=== PATIENT | female | born 1985 | race Caucasian/White ===

== ENCOUNTER → 2017-03-06 | Outpatient (CLI) | payer MEDICAID ==
[~2017-03-06] MED LIST: ALBUTEROL-200 PUFFS/ IH; BUPRENORPHINE H1 TAB SL; FLINTSTONES1 CTB PO; HYDROCORT 1% CR30 GM TP; MOTRIN400 MG PO; PERCOCET 5/3251 EACH PO; PREDNISONE 20MG20 MG PO; SINGULAIR 10 MG10 MG PO; TESSALON PERLE100 MG PO; ZITHROMAX Z PA250 MG PO
[2017-03-06 17:32] LABS: AMPHETAMINES/METAMPHETAMINES NEGATIVE ng/mL (<1000)
== END ==
LOC: LAB 14:45
PROVIDERS: Obstetrics & Gynecology
DX: O20.0 Threatened abortion (principal); Z04.8 Encounter for examination and observation for other specified reasons; Z34.80 Encounter for supervision of other normal pregnancy, unspecified trimester

== ENCOUNTER → 2017-05-11 | Outpatient (CLI) | payer MEDICAID ==
--- NOTE | 2017-05-11 15:41 | RADIOLOGY REPORT PS360 ---
US PELVIS (NO FETUS) HISTORY: RT OVARIAN CYST ORDERING PHYSICIAN: Gage Choe MD PATIENT AGE: 31 years COMPARISON: None FINDINGS: The patient is 15 weeks . Evaluation is performed of the right ovary demonstrating a 2 cm corpus luteum cyst. evaluation was not performed. Blood flow is noted to both ovaries. Left ovary has an unremarkable appearance measuring 3.3 x 2 cm. The right ovary measures 2.9 x 2.4 cm. No cul-de-sac fluid demonstrated. IMPRESSION: 2 cm right ovarian cyst probably representing a corpus luteum cyst
== END ==
LOC: RAD 12:51
DX: N83.201 Unspecified ovarian cyst, right side (principal)

== ENCOUNTER 2017-07-09 16:23 | Emergency (ER) | payer MEDICAID ==
[~2017-07-09] VITALS: Ht 162.6 cm; Wt 56.7 kg
--- OUTSIDE RECORDS SUMMARY | 2017-07-09 16:29 | External Medical Summary Rpt | CCD ---
Author Author , IZABELLA Organization IZABELLA Address Unknown Phone [email or web address] Providers Care Grit Blaster Name Role Phone Caitlin Munguia MD, Unavailable Unavailable Caitlin Munguia MD Purpose Continuity of Care Document - 03-13-2013 through 2016 Problems Code Diagnosis DOS Provider Status 305.1 305.1 03-13-2013 [place] TOBACCO USE [facility] 634.91 634.91 SPON [facility] J40 BRONCHITIS, NOT SPECIFIED ACUTE OR CHRONIC J45.909 UNSPECIFIED ASTHMA, UNCOMPLICAT ED Allergies, Adverse Reactions, Alerts Type Allergy to substance Adverse Reaction to Substance Substance Reaction Severity NO KNOWN ALLERGIES Unknown Unknown Vital Signs 03-13-2013 19:08 Name Value Interpretat Reference Comment ion Range Body 97.6 [degF] Temperature BP 76 mm[Hg] Diastolic BP Systolic 121 mm[Hg] Heart 85 /min Rate/Pulse O2% 96 % Respiratory 20 /min Rate 03-13-2013 17:40 Name Value Interpretat Reference Comment ion Range BP 66 mm[Hg] Diastolic BP Systolic 100 mm[Hg] Heart 69 /min Rate/Pulse O2% 96 % Respiratory 20 /min Rate Results Labs Lab Lab Date Result Refere Interp Status Commen Order Detail nces retati t Range on AFP Tetra (05-29-2017 19:32) Comment SEE complet s: 017 BELOW: ed 19:32 Comment: THIS PATIENT IS AT INCREASED RISK TO HAVE A BABY WITH OPEN Comment: SPINA BIFIDA (OSB). RECOMMENDATIONS: Comment: Comment: 1) TARGETED ULTRASOUND IS RECOMMENDED TO VERIFY Comment: GESTATIONAL AGE, VIABILITY, NUMBER OF FETUSES, AND TO Comment: RULE OUT ANOMALIES. Comment: Comment: 2) IF AFP IS < 2.0 MoM, REPEATING THE AFP IS AN OPTION TO Comment: RULE OUT TRANSIENT ELEVATIONS. Comment: Comment: 3) SEE SEPARATE RESULT FORM FOR ADDITIONAL COMMENTS. Interpr POSITIV complet etation 017 E FOR ed of 19:32 OSB serum or plasma second Quantit 1 : complet ative 017 2388 ed risk 19:32 assessm ent for trisomy Quantit = NOT complet ative 017 INCREAS ed risk 19:32 ED assessm ent for trisomy = 613 complet trisomy 017 ed 21 19:32 risk determi nation base Interpr SCREEN complet etation 017 POS. ed of 19:32 ABNORMA serum L or plasma second Trisomy = 4618 complet 21 017 ed risk 19:32 determi nation in fetus Determi = 238 complet nation 017 ed of risk 19:32 of open neural tub Serum = 1.12 complet or 017 ed plasma 19:32 inhibin A measure ment (a Serum = complet or 017 222.10 ed plasma 19:32 pg/mL inhibin A measure ment (m Serum = 0.64 complet or 017 ed plasma 19:32 unconju gated estriol (E3 Serum = 0.78 complet or 017 ng/mL ed plasma 19:32 unconju gated estriol (E3 Serum = 2.41 complet or 017 ed plasma 19:32 choriog onadotr opin measu HCG = 74346 complet ser/lemuel 017 mIU/mL ed s 19:32 Serum = 2.60 complet or 017 ed plasma 19:32 alpha-1 -fetopr otein valente Serum = 117.5 complet or 017 ng/mL ed plasma 19:32 alpha fetopro tein measur Results REPORT complet 017 ed 19:32 Multipl NO NO L complet e 017 ed pregnan 19:32 cy Insulin NOT complet 017 PROVIDE ed depende 19:32 D NOT nt PROVIDE diabete D L s mellitu s dete Determi = 121 complet nation 017 LBS. ed of 19:32 weight Mother' CAUCASI complet s race 017 AN ed 19:32 CAUCASI AN L Age at = 32 complet deliver 017 YEARS ed y 19:32 Gestati RAMAN complet onal 017 ed age 19:32 8 RAMAN method 8 L Determi = 17.3 complet nation 017 WEEKS ed of 19:32 gestati onal age B-HCG SerPl EIA 3rd [facility] (03-13-2013 17:59) B-HCG 14-2 7514.8 complet SerPl 013 mIU/ML ed EIA 3rd 17:59 [facility] URINALYSIS/COMPLETE (03-13-2013 17:12) URINE 08-14-2 YELLOW YELLOW complet COLOR 013 ed 17:12 URINE 08-14-2 CLEAR CLEAR complet APPEARA 013 ed NCE 17:12 URINE 08-14-2 NEGATIV NEG complet GLUCOSE 013 E ed - 17:12 DIPSTIC K URINE 08-14-2 NEGATIV NEG complet BILIRUB 013 E ed IN - 17:12 DIPSTIC K URINE 08-14-2 NEGATIV NEG complet KETONE 013 E mg/dL ed 17:12 URINE 08-14-2 Less 1.005-1 complet SPECIFI 013 than or .030 ed C 17:12 equal GRAVITY to 1.005 URINE 08-14-2 NEGATIV NEG complet BLOOD 013 E ed 17:12 URINE 08-14-2 7.0 UNK 5.0-8.5 complet PH 013 ed 17:12 URINE 08-14-2 NEGATIV NEG complet PROTEIN 013 E mg/dL ed - 17:12 DIPSTIC K URINE 08-14-2 0.2 NEG complet UROBILI 013 E.U./dL ed NOGEN - 17:12 DIPSTIC K URINE 08-14-2 NEGATIV NEG complet NITRATE 013 E ed - 17:12 DIPSTIC K URINE 08-14-2 NEGATIV NEG complet LEUK 013 E ed ESTERAS 17:12 E URINE 08-14-2 OCC 0 complet RBC 013 rbc/hpf ed 17:12 URINE 08-14-2 OCC O complet WBC 013 wbc/hpf ed 17:12 URINE 08-14-2 10-20 0-5 complet SQUAMOU 013 #/hpf ed S CELLS 17:12 URINE 08-14-2 TRACE O complet BACTERI 013 ed A 17:12 Encounters Encounter Start End Date Code Location Performer Type Date Emergency DESIRAE Munguia MD (ER) 3 17:31 3 19:09 [facility]
--- OUTSIDE RECORDS SUMMARY | 2017-07-09 16:29 | External Medical Summary Rpt | CCD ---
Demographics Preferred Language Filipino Marital Status Unknown Sikhism Affiliation Unknown Race Unknown Ethnic Group Unknown Author Author , OMERO PAREKH Address Unknown Phone Immunization No patient found.
--- OUTSIDE RECORDS SUMMARY | 2017-07-09 16:29 | External Medical Summary Rpt | CCD ---
Author Author , IZABELLA Organization IZABELLA Address Unknown Phone [email or web address] Care Team Providers Care Osha Inspector Name Role Phone Caitlin Munguia MD, Unavailable Unavailable Caitlin Munguia MD Purpose Continuity of Care Document - 03-13-2013 through 2016 Problems Code Diagnosis DOS Provider Status 305.1 305.1 03-13-2013 [place] TOBACCO USE [facility] 634.91 634.91 SPON [facility] J40 BRONCHITIS, NOT SPECIFIED ACUTE OR [...] 19:32 choriog onadotr opin measu HCG = [address] complet ser/lemuel 017 mIU/mL ed s 19:32 [...] complet onal 017 ed age 19:32 8 ARMAN method 8 L Determi = 17.3 complet nation 017 WEEKS ed of 19:32 gestati onal age B-HCG SerPl EIA 3rd IS-[facility] (03-13-2013 17:59) B-HCG 14-2 7514.8 complet SerPl 013 mIU/ML ed EIA 3rd 17:59 [facility] URINALYSIS/COMPLETE (03-13-2013 17:12) URINE 08-14-2 YELLOW YELLOW [...] Munguia MD (ER) 3 17:31 3 19:09 [facility]
--- OUTSIDE RECORDS SUMMARY | 2017-07-09 16:29 | External Medical Summary Rpt | CCD ---
Demographics Preferred Language Indonesian Marital Status Unknown Evangelical Affiliation Unknown Race Unknown Ethnic Group Unknown Author Author , OMERO PAREKH Address Unknown Phone Immunization No patient found.
--- OUTSIDE RECORDS SUMMARY | 2017-07-09 16:29 | External Medical Summary Rpt | CCD ---
Author Author [employer] Organization [employer] Address Unknown Phone Unavailable Purpose Continuity of Care Document - through 2016
--- NOTE | 2017-07-09 17:23 | Urgent Treatment Center Report ---
History of Present Issue Date/Time Seen by Provider 07/09/17 1709 Visit Reason Pt arrived:Walked Presenting Problem:PT IS C/O SORE THROAT Location if Accident: Onset of symptoms date/time:/ or onset unknown for:MEDICAL HX UNKNOWN Have you (or family members/close friends) recently traveled outside the [place]? N If Yes, where/when: Have you had exposure to infectious disease within the past month? TB? Other? Specify: Patient state that she has been having sorethroat State that her son was recently diagnosed with Strep throat and she was worried that she may have it too State that she came in today to see if she may have caught strep throat from him State that as the day has progressed she has continued to feel worse ALLERGIES Coded Allergies: No Known Allergies (02/16/16) Home Medications Reported Medications BUPRENORPHINE HCL/NALOXONE HCL (Buprenorphin-Naloxon 8-2 MG Sl) 1 TAB SL BID #28 History Medical History General CAD? No Angina: No FL: No Hypertension? No Hyperlipidemia? No CHF? No DVT? No PE? No COPD? No Asthma? No Anemia? No GERD? No Gastric ulcers? No GI Bleed? No Hernia? No Thyroid Problems? No Hypothyroidism? No CVA? No Seizures? No Diabetes? No Renal Insuffiency? No UTI? No Stones? No BPH? No GB Disease: No Nephritic Syndrome? No Asplenia? No Hepatitis? No Sickle Cell Disease? No Arthritis? No Migraines? No Cataracts? No Glaucoma? No MRSA? No HIV? No TB? No Anxiety? No Depression? No Cancer? No Immunization HX DT/Tetanus UNKNOWN Flu 2016-18FSN Surgical Hx Previous Surgery?Y D & C Social History Smoking Hx Smoker: Current Every Day Smoker Tobacco: Yes Type Cigarettes Packs/day < 1 Pack Alcohol Alcohol: Yes Review of Systems All Other Systems Reviewed and Negative ENT throat pain. Physical Exam Vital Signs Vital Signs Date Time Temp Pulse Resp B/P Pulse O2 O2 Flow FiO2 Ox Delivery Rate 07/09 1752 97.3 116 20 114/62 98 07/09 1648 97.3 116 20 114/62 98 General Appearance normal appearance, WD/WN, no apparent distress Ear, Nose, Throat pharyngeal erythema, Throat bright red, blister like lesions noted, no exudate Respiratory Status Yes: trachea midline, chest symmetrical, non tender chest. No: respiratory distress. Lung Sounds bilateral: normal breath sounds, lungs clear. Cardiovascular normal exam, regular rate/rhythm, no peripheral edema Neurologic alert, normal exam, oriented x 3 Medical Decision Making LABS/Meds/Orders Pt receiving controlled substance in ED? No Results/Orders Laboratory Tests 07/09/17 165: Group A Strep Screen NOT DETECTED Orders Procedure Date/time Status [facility] STREP SCREEN 07/09 1657 Complete Progress [facility] Progress Notes Date 07/11/17 Time 0859 Comment Patient strep culture came back positive for group A strep, attempting to contact patient spoke with advised that he would have her call. Penicillin PO BID sent to pharmacy to cover Strep Departure Departure Time of Disposition 1728 Disposition DC Home or Self Care(routine) Clinical Impression Primary Impression: Upper respiratory infection Qualifiers: URI type: unspecified URI Qualified Code: J06.9 - Acute upper respiratory infection, unspecified Condition STABLE Referrals Dee Dee CONTRERAS,Manjit Toro (Family): 3 Days-Call Office Patient Instructions Sore Throat Additional Instructions * Monitor Temp. Tylenol and/or Ibuprofen as needed. ER if fever is no less than 101 despite alternating Tylenol and Ibuprofen * Encourage fluids, water, Gatorade, powerade, pedialyte if infant/toddler/or child * Warm salt water gargles for throat irritation *Warm fluids *Sore throat lozenges *Sleep elevated *humidifier or vaporizer Lots of rest Increase fluids, water, Gatorade, powerade *Your throat swab was sent to lab for culture. Those results area typically sent to your primary care physician. Be sure to follow up in 2-3 days if no improvement so they can review those results and treat if necessary If you dont have primary care I recommend you get one, but in the mean time you will have to return to a walk in clinic Follow up IMMEDIATELY for new or worsening of symptoms OR no noticeable improvement over the next 48-72 hours. 911 immediately for any life threatening symptoms such as chest pain or difficulty breathing Discharge Counseling Counseled pt/family regarding diagnosis, test results, home care, follow up needs Prescriptions Current Visit Scripts Penicillin V Potassium 500 MG PO BID #20 TAB at 0901
[2017-07-09 17:52] VITALS: BP 114/62
[2017-07-11] MEDS ORDERED: PENICILLIN-VK500 MG PO (08:59)
== END 2017-07-09 18:07 | disposition home or self-care (01) ==
LOC: UTC 16:23
DX: J02.0 Streptococcal pharyngitis (principal)